=== PATIENT | male | born 1985 | race Caucasian/White ===

== ENCOUNTER 2018-12-19 18:51 | Emergency (ER) | payer MEDICAID ==
[~2018-12-19] VITALS: Ht 182.9 cm; Wt 78.8 kg
[2018-12-19] MEDS ORDERED: PENI500T2 PO (20:09)
[2018-12-19 20:16] VITALS: BP 130/94
== END 2018-12-19 20:15 | disposition home or self-care (01) ==
LOC: ER 18:51
DX: K02.9 Dental caries, unspecified (principal); F17.200 Nicotine dependence, unspecified, uncomplicated; Z88.6 Allergy status to analgesic agent
CPT/HCPCS: 99283

== ENCOUNTER 2019-04-29 05:24 | Emergency (ER) | payer MEDICAID ==
[~2019-04-29] VITALS: Ht 180.3 cm; Wt 79.5 kg
[2019-04-29 05:39] VITALS: BP 160/117
[2019-04-29] MEDS ORDERED: CYCL-1 PO (05:53)
[2019-04-29] MEDS ORDERED: HYDR-3965 PO (05:53)
[2019-04-29] MEDS ORDERED: ondansetron 4mg rapidly disintigrating tab PO ONE (05:55)
[2019-04-29] MEDS ORDERED: HYDROcodone/acetaminophen 5mg/325mg tablet PO ONE (05:55)
[2019-04-29] MEDS ORDERED: acetaminophen 325mg tablet PO ONE (05:55)
== END 2019-04-29 06:14 | disposition home or self-care (01) ==
LOC: ER 05:24
DX: M54.2 Cervicalgia (principal); Z88.6 Allergy status to analgesic agent; Z79.899 Other long term (current) drug therapy
CPT/HCPCS: 99284

== ENCOUNTER 2019-05-05 17:42 | Emergency (ER) | payer MEDICAID ==
[~2019-05-05] VITALS: Ht 180.3 cm; Wt 78.3 kg
[~2019-05-05 17:42] MED LIST: CYCL-1 PO; HYDR-3965 PO
[2019-05-05] MEDS ORDERED: CYCL-1 PO (20:36)
[2019-05-05] MEDS ORDERED: HYDR-3965 PO (20:36)
[2019-05-05] MEDS ORDERED: HYDROcodone/acetaminophen 10/325mg tab PO ONE (20:40)
[2019-05-05 21:09] VITALS: BP 131/89
== END 2019-05-05 21:10 | disposition home or self-care (01) ==
LOC: ER 17:44
DX: M54.2 Cervicalgia (principal); G89.29 Other chronic pain; Z88.6 Allergy status to analgesic agent; Z79.899 Other long term (current) drug therapy
CPT/HCPCS: 99284